=== PATIENT | male | born 1985 | race African-American/Black ===

== ENCOUNTER 2017-08-25 19:57 | Emergency (ER) | payer MEDICAID ==
[~2017-08-25] VITALS: Ht 180.3 cm; Wt 88.5 kg
[2017-08-25 20:04] VITALS: BP 136/81
[2017-08-25 20:08] VITALS: BP 136/81
--- NOTE | 2017-08-25 20:08 | NUR ---
TO LOBBY, A/W BED, CIERRA, VSEugene, ERMMerlin NOTED
--- NOTE | 2017-08-25 21:55 | NUR ---
PATIENT LEFT WITHOUT BEING SEEN BY DR. Warner. NO FURTHER CARE PROVIDED FOR PATIENT.
== END 2017-08-25 21:55 | disposition left against medical advice (07) ==
LOC: MED 19:57
DX: M54.2 Cervicalgia (principal); Z53.21 Procedure and treatment not carried out due to patient leaving prior to being seen by health care provider
CPT/HCPCS: 70360; 99281

== ENCOUNTER 2018-03-09 20:51 | Emergency (ER) | payer MEDICAID ==
[~2018-03-09] VITALS: Ht 180.3 cm; Wt 90.9 kg
[2018-03-09 20:55] VITALS: BP 140/94
--- NOTE | 2018-03-09 21:00 | NUR ---
PT ASSISTED BACK TO LOBBY
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
[2018-03-09 22:28] VITALS: BP 145/92
--- NOTE | 2018-03-09 22:29 | NUR ---
Patient discharged with v/s stable. Written and verbal after care instructions given and explained. Patient alert, oriented and verbalized understanding of instructions. Ambulatory with steady gait. All questions addressed prior to discharge. ID band removed. Patient advised to follow up with PMD. Rx of MOTRIN, ROBAXIN given. Patient educated on indication of medication including possible reaction and side effects. Opportunity to ask questions provided and answered.
== END 2018-03-09 22:29 | disposition home or self-care (01) ==
LOC: MED 20:51
DX: S16.1XXA Strain of muscle, fascia and tendon at neck level, initial encounter (principal); V43.52XA Car driver injured in collision with other type car in traffic accident, initial encounter; Y93.I9 Activity, other involving external motion; Y92.512 Supermarket, store or market as the place of occurrence of the external cause; Y99.8 Other external cause status
CPT/HCPCS: 72040; 99284; Q0092

== ENCOUNTER 2018-05-11 04:25 | Emergency (ER) | payer MEDICAID ==
[~2018-05-11] VITALS: Ht 180.3 cm; Wt 90.3 kg
[2018-05-11 04:32] VITALS: BP 132/90
--- NOTE | 2018-05-11 04:32 | NUR ---
TO BED # 9 AMBULATORY, REPORT GIVEN TO JARETT RN
--- NOTE | 2018-05-11 04:33 | NUR ---
33 Y/O M W/C/O TOOTH ACHE X 2 DAYS. PT DENIES N/V/D; SKIN IS INTACT, PINK/WARM/DRY; AAOX4, PERRL, WITH EVEN AND STEADY GAIT; LUNGS CLEAR BL, BREATHING UNLABORED; HR EVEN AND REGULAR, BL PERIPHERAL PULSES PRESENT; BS ACTIVE X4, NO TENDERNESS TO PALPATION, NO HEPATOSPLENOMEGALLY PALPATED, RESONANT TO PERCUSSION; PT DENIES ANY FEVER, CP, SOB, OR COUGH AT THIS TIME; PT STATES 10/10 PAIN AT THIS TIME; VSS; PATIENT POSITIONED FOR COMFORT; HOB ELEVATED; BEDRAILS UP X2; BED DOWN.
[2018-05-11] MEDS ORDERED: KETOROLAC 60 MG/2 ML VIAL IM ONE (04:40)
[2018-05-11 04:55] VITALS: BP 129/69
== END 2018-05-11 04:56 | disposition home or self-care (01) ==
LOC: MED 04:25
DX: K08.89 Other specified disorders of teeth and supporting structures (principal)
CPT/HCPCS: 96372; 99283; J1885

== ENCOUNTER 2019-07-02 12:34 | Emergency (ER) | payer MEDICAID ==
[~2019-07-02] VITALS: Ht 180.3 cm; Wt 90.3 kg
[2019-07-02 12:44] VITALS: BP 135/78
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
[2019-07-02 14:00] VITALS: BP 119/72
--- NOTE | 2019-07-02 14:00 | NUR ---
Patient discharged with v/s stable. Written and verbal after care instructions given and explained. Patient verbalized understanding. Ambulatory with steady gait. All questions addressed prior to discharge. Advised to follow up with PMD.
== END 2019-07-02 14:00 | disposition home or self-care (01) ==
LOC: MED 12:34
DX: R06.6 Hiccough (principal); R13.10 Dysphagia, unspecified
CPT/HCPCS: 99281

== ENCOUNTER 2019-09-13 16:22 | Emergency (ER) | payer MEDICAID ==
[~2019-09-13] VITALS: Ht 180.3 cm; Wt 93.0 kg
[2019-09-13 16:25] VITALS: BP 139/93
--- NOTE | 2019-09-13 16:39 | NUR ---
PATIENT AMBULATED TO CHAIR C.
[2019-09-13 17:38] VITALS: BP 128/84
--- NOTE | 2019-09-13 17:38 | NUR ---
NICK OKAY TO DISCHARGE PATIENT. Patient discharged with v/s stable. Written and verbal after care instructions given and explained. Patient alert, oriented and verbalized understanding of instructions. Ambulatory with steady gait. All questions addressed prior to discharge. ID band removed. Patient advised to follow up with PMD. Rx of IBUPROFEN; PROMETHAZINE; AND OMEPRAZOLE given. Patient educated on indication of medication including possible reaction and side effects. Opportunity to ask questions provided and answered. PATIENT ASSESSED BY JUAN LUIS LOMAS.
== END 2019-09-13 17:38 | disposition home or self-care (01) ==
LOC: MED 16:22
DX: J06.9 Acute upper respiratory infection, unspecified (principal)
CPT/HCPCS: 99283